=== PATIENT | female | born 1940 | race Caucasian/White ===

== ENCOUNTER 2018-06-02 08:36 | Day surgery (SDC) | payer MEDICARE, OTHER ==
[~2018-06-02] VITALS: Ht 166.4 cm; Wt 50.9 kg
[2018-06-02 08:35] VITALS: BP 161/101
[2018-06-02] MEDS ORDERED: HYDR28GE TOP (09:07)
[2018-06-02] MEDS ORDERED: [UNRECOGNIZED DRUG - OTHER] TOP (09:08)
[2018-06-02] MEDS ORDERED: NUTR113P (09:08)
[2018-06-02] MEDS ORDERED: ALB0.5UD IH (09:08)
[2018-06-02] MEDS ORDERED: ACET-812 PEG (09:09)
[2018-06-02] MEDS ORDERED: DIPH25CA83 PEG (09:09)
[2018-06-02] MEDS ORDERED: FAMO-128 PEG (09:10)
[2018-06-02 09:16] VITALS: BP 120/47
== END 2018-06-02 09:18 | disposition home or self-care (01) ==
LOC: GI LAB 08:36
PROVIDERS: ATTEND Internal Medicine Gastroenterology
DX: Z43.1 Encounter for attention to gastrostomy (principal); K21.9 Gastro-esophageal reflux disease without esophagitis; J44.9 Chronic obstructive pulmonary disease, unspecified; Z88.0 Allergy status to penicillin; Z88.5 Allergy status to narcotic agent; Z88.1 Allergy status to other antibiotic agents; Z91.018 Allergy to other foods; Z79.891 Long term (current) use of opiate analgesic; Z86.73 Personal history of transient ischemic attack (TIA), and cerebral infarction without residual deficits; Z87.891 Personal history of nicotine dependence; Z98.890 Other specified postprocedural states; Z79.899 Other long term (current) drug therapy
CPT/HCPCS: 43760; B4088; G0500

== ENCOUNTER 2018-08-18 07:34 | Day surgery (SDC) | payer MEDICARE, OTHER ==
[~2018-08-18 07:34] MED LIST: ACET-812 PEG; ALB0.5UD IH; DIPH25CA83 PEG; FAMO-128 PEG; HYDR28GE TOP; NUTR113P; [UNRECOGNIZED DRUG - OTHER] TOP
[2018-08-18 07:43] VITALS: BP 145/86
[2018-08-18] MEDS ORDERED: fentaNYL/PF 50MCG/1 ML 2ML syringe ONE (08:10)
[2018-08-18] MEDS ORDERED: LIDOcaine Viscous 15ml cup ONE (08:11)
[2018-08-18] MEDS ORDERED: MIDAZolam 5mg/5ml vial ONE (08:11)
[2018-08-18 09:32] VITALS: BP 143/82
[2018-08-18 09:42] VITALS: BP 140/84
[2018-08-18 09:52] VITALS: BP 135/102
[2018-08-18 10:02] VITALS: BP 166/102
== END 2018-08-18 10:02 | disposition home or self-care (01) ==
LOC: GI LAB 07:34
PROVIDERS: ATTEND Internal Medicine Gastroenterology
DX: K29.50 Unspecified chronic gastritis without bleeding (principal); K44.9 Diaphragmatic hernia without obstruction or gangrene; K55.9 Vascular disorder of intestine, unspecified; K21.0 Gastro-esophageal reflux disease with esophagitis; K31.89 Other diseases of stomach and duodenum; Z86.14 Personal history of Methicillin resistant Staphylococcus aureus infection; Z93.1 Gastrostomy status; Z85.118 Personal history of other malignant neoplasm of bronchus and lung; Z91.018 Allergy to other foods; Z86.73 Personal history of transient ischemic attack (TIA), and cerebral infarction without residual deficits; Z86.69 Personal history of other diseases of the nervous system and sense organs; Z87.891 Personal history of nicotine dependence; Z90.710 Acquired absence of both cervix and uterus; Z96.641 Presence of right artificial hip joint; Z88.0 Allergy status to penicillin; Z88.5 Allergy status to narcotic agent; Z88.6 Allergy status to analgesic agent; Z88.1 Allergy status to other antibiotic agents; Z79.891 Long term (current) use of opiate analgesic; Z79.899 Other long term (current) drug therapy; Z98.890 Other specified postprocedural states
CPT/HCPCS: 43239; G0500; J2250; J3010; J7030; 99152; A4620